=== PATIENT | female | born 1955 | race Caucasian/White ===

== ENCOUNTER 2016-11-17 00:03 | Emergency (ER) | payer BC, OTHER ==
[2016-11-17] MEDS ORDERED: Ondansetron ODT 4 MG TAB ONE (00:16)
[2016-11-17] MEDS ORDERED: Promethazine HCl 25 MG/ML VIAL ONE (01:01)
--- NOTE | 2016-11-17 01:06 | ERRECORD ---
[facility] EMERGENCY RECORD HPI NAUSEA/VOMITING/DIARRHEA (00:31 ABUS) CHIEF COMPLAINT: Patient presents for evaluation of nausea, Patient presents for evaluation of vomiting, Patient presents for evaluation of diarrhea. HISTORIAN: History provided by patient, 61 yr old F who comes in with reports of recent bronchitis and treatment with a z-ashley and steroids which she just finished and now has 2 days of N/V/D (nonbloody). Denies any F, rash. LOCATION FEMALE: Symptoms are generalized. SEVERITY: Currently symptoms are moderate, Current severity of pain rated as 9/10. TIME COURSE: Gradual onset of symptoms, 2, days priror to arrival, There has been no change in the patient's symptoms over time, are intermittent. ASSOCIATED WITH FEMALE: Associated with diarrhea, Associated with nausea, Associated with vomiting. EXACERBATED BY: Patient's condition exacerbated by food. RELIEVED BY: Patient's condition relieved by nothing. ROS (00:33 ABUS) CONSTITUTIONAL: Negative constitutional review of systems, Historian denies chills, denies fever. CARDIOVASCULAR: Negative cardiovascular review of systems, Historian denies chest pain, denies palpitations. RESPIRATORY: Negative respiratory review of systems, Historian denies cough, denies shortness of breath. GI: Historian reports abdominal pain, reports diarrhea, reports nausea, reports vomiting. GENITOURINARY FEMALE: Negative genitourinary review of systems, Historian denies dysuria, denies frequency. SKIN: Negative skin review of systems, Historian denies rash, denies skin changes. NEUROLOGIC: Negative neurologic review of systems, Historian denies headache. HEMO/LYMPHATIC: Normal hematologic/lymphatic system review, Historian denies abnormal blood clotting. PAST MEDICAL HISTORY (00:13 REBECCA) MEDICAL HISTORY: No past medical history. FEMALE SURGICAL HISTORY: Surgical history of hysterectomy. PSYCHIATRIC HISTORY: No previous psychiatric history, no previous inpatient psychiatric admissions. SOCIAL HISTORY: Patient denies drug use, Patient currently uses tobacco, smokes cigarettes, daily. KNOWN ALLERGIES No Known Drug Allergies CURRENT MEDICATIONS &a-1R&a+25V*p+0X*a2815O*c202B*c15G*c2P*p-0X&a-25V&a+1R Name: Felicia Goldberg : 1955 F61 MedRec: [id number] AcctNum: [id number] Prepared: WedNov 17, 2016 01:32 by Interface Page 1 of 3 pMD [facility] EMERGENCY RECORD No recorded medications VITAL SIGNS VITAL SIGNS: BP: 144/80, Pulse: 107, Resp: 16, Temp: 97.9 (Oral), Pain: 10, O2 sat: 95 on Room Air, Time: 11/17/2016 00:09. (00:09 MDEB) BP: 111/82, Pulse: 98, Resp: 16, O2 sat: 92 on RA, Time: 11/17/2016 01:23. (01:23 REBECCA) PHYSICAL EXAM (00:33 ABUS) CONSTITUTIONAL: Vital signs reviewed, Patient afebrile, Pulse normal, Blood pressure normal, Respiratory rate normal, Patient appears non toxic, Patient appears pain free, Patient alert and oriented to person, place and time. NECK: Neck exam normal, Neck exam included findings of normal range of motion, Trachea midline, no meningeal signs, no cervical adenopathy, no tenderness. RESPIRATORY CHEST: Respiratory and chest exam normal, Respiratory exam included findings of no respiratory distress, Breath sounds clear. CARDIOVASCULAR: Cardiovascular assessment normal, Cardiovascular exam included findings of heart rate regular rate and rhythm, Heart sounds normal. ABDOMEN FEMALE: Abdominal exam included findings of abdomen tender, to the epigastric region, mild intensity, Bowel sounds normal, no distension, no mass, no pulsatile masses, no peritoneal signs, no rigidity, no guarding, no rebound. BACK: Back exam normal, Back exam included findings of normal inspection, range of motion normal, no tenderness. NEURO: Neuro exam normal, Neuro exam findings include patient oriented to person, place and time, Speech normal, Gait normal. SKIN: Skin exam normal, Skin exam included findings of skin warm, dry, and normal in color, no rash. MEDICATION ADMINISTRATION SUMMARY Drug Name: promethazine injection, Dose Ordered: 25 mg, Route: Intramuscular, Status: Given, Time: 01:06 11/17/2016, Drug Name: Zofran ODT, Dose Ordered: 8 mg, Route: Oral, Status: Given, Time: 00:20 11/17/2016, Detailed record available in Medication Service section. DOCTOR NOTES (00:34 ABUS) TEXT: 61 yr old F who comes in with reports of recent bronchitis and treatment with a z-ashley and steroids which she just finished and now has 2 days of N/V/D (nonbloody). EXAM: Abdominal exam included findings of abdomen tender, to the epigastric region, mild intensity, Bowel sounds normal, no distension, no mass. DDX: Viral gastroenteritis &a-1R&a+25V*p+0X*n9101U*c202B*c15G*c2P*p-0X&a-25V&a+1R Name: Felicia Goldberg : 1955 F61 MedRec: [id number] AcctNum: [id number] Prepared: hcaya Nov 17, 2016 01:32 by Interface Page 2 of 3 pMD [facility] EMERGENCY RECORD Plan: Zofran and promethazine. Return precautions and counseling on advancement of fluids and food as outpatient. Discussed the rational and plan of care with pt and son who verbalized understanding and agreement. She also requested to go home and sleep in her own bed. PROBLEM LIST No recorded problems DIAGNOSIS (00:50 ABUS) FINAL: PRIMARY: Viral Gastroenteritis. PRESCRIPTION (00:36 ABUS) promethazine oral: TABLET : 25 mg : ORAL : Quantity: 1 Unit: tab(s) Route: ORAL Schedule: every 6 hours PRN Dispense: 8 Unit: tab(s) May substitute. Refills: No Refills . NOTES: No Refills. Zofran ODT: TABLET,DISINTEGRATING : 4 mg : ORAL : Quantity: 1 Unit: tab(s) Route: ORAL Schedule: every 6 hours PRN Dispense: 8 Unit: tab(s) May substitute. Refills: No Refills . NOTES: ^s=No Refills No Refills. DISPOSITION PATIENT: Disposition Type: Discharge, Disposition: *Discharge Home, Condition: Good. (00:50 ABUS) Patient left the department. (01:26 REBECCA) Arellano: [place]=MD Bambi, Josh FERNANDEZ=JON Jason, Elodia ODONNELL=JON Odell, Melodie &a-1R&a+25V*p+0X*u0215N*c202B*c15G*c2P*p-0X&a-25V&a+1R Name: Felicia Goldberg : 1955 F61 MedRec: [id number] AcctNum: [id number] Prepared: Margot Nov 17, 2016 01:32 by Interface Page 3 of 3 pMD MTDD
--- NOTE | 2016-11-17 01:17 | PICIS ---
[facility] EMERGENCY RECORD TRIAGE (WedNov 17, 2016 00:10 MDEB) TRIAGE NOTES: PATIENT C/O N/V FOR 3 DAYS AND DIARRHEA THAT STARTED TONIGHT. (WedNov 17, 2016 00:10 MDEB) PATIENT: NAME: Felicia Goldberg, AGE: 61, GENDER: female, : Wed1955, TIME OF GREET: WedNov 17, 2016 00:04, PREFERRED LANGUAGE: Kosovan, ETHNICITY: Not or , ECODE BILLING MAP: [facility], SSN: [id number], Zip Code: [address], KG WEIGHT: 63.50, , , PERSON ID: [id number], PCP: Mona HOPE. (WedNov 17, 2016 00:10 MDEB) PHONE: . (00:32) COMPLAINT: DIARRHEA, VOMITING. (WedNov 17, 2016 00:10 MDEB) ADMISSION: URGENCY: 3 Urgent, ADMISSION SOURCE: Home, TRANSPORT: Walk-in, BED: ED -05. (WedNov 17, 2016 00:10 MDEB) ASSESSMENT: Additional Triage notes: PATIENT SEEN BY PCP FOR BRONCHITIS. GIVEN ABX AND STEROIDS. NOW C/O N/V/D THAT HAS STARTED AFTER THE ABX. (00:13 REBECCA) PAIN: Patient complains of pain described as, Location GENERALIZED. (00:13 REBECCA) IMMUNIZATIONS: Flu vaccine not up to date, Tetanus not up to date, Pneumococcal vaccine not up to date. (00:13 REBECCA) SIRS SCORING: Heart Rate 55-109 (0), Temp range 96.8-101.1 (0), respiratory rate 12-24 (0), Latest WBC 3-14.9 (0), Mental Status altered: no (0), Infection or Suspected Infection: No. (00:13 REBECCA) TRIAGE SCREENING: Patient denies suicidal ideation, Patient denies presence of domestic violence. (00:13 REBECCA) LMP: LMP: Hysterectomy. (00:13 REBECCA) PROVIDERS: TRIAGE NURSE: Melodie Odell RN. (WedNov 17, 2016 00:10 MDEB) VITAL SIGNS: BP 144/80, Pulse 107, Resp 16, Temp 97.9, (Oral), Pain 10, O2 Sat 95, on Room Air, Time 11/17/2016 00:09. (00:09 MDEB) KNOWN ALLERGIES No Known Drug Allergies CURRENT MEDICATIONS No recorded medications VITAL SIGNS VITAL SIGNS: BP: 144/80, Pulse: 107, Resp: 16, Temp: 97.9 (Oral), Pain: 10, O2 sat: 95 on Room Air, Time: 11/17/2016 00:09. (00:09 MDEB) BP: 111/82, Pulse: 98, Resp: 16, O2 sat: 92 on RA, Time: 11/17/2016 01:23. (01:23 REBECCA) NURSING ASSESSMENT: ABDOMEN (00:20 REBECCA) CONSTITUTIONAL: Patient arrives ambulatory, Gait steady, History obtained from patient, Patient appears, generally ill, Patient cooperative, Patient alert, Oriented to person, place and time, Skin warm, Skin dry, Skin normal in color, Mucous membranes &a-1R&a+25V*p+0X*a7385S*c202B*c15G*c2P*p-0X&a-25V&a+1R Name: Felicia Goldberg : 1955 F61 MedRec: [id number] AcctNum: [id number] Prepared: WedNov 17, 2016 01:37 by Interface Page 1 of 6 pMD [facility] EMERGENCY RECORD pink, Mucous membranes moist, Patient is well-groomed, Patient c/o n/v/d after starting abx. PAIN: aching pain, cramping pain, diffusely. ABDOMEN: Abdomen assessment findings include abdomen symmetrical, Abdomen soft, tender, to the epigastric region, Bowel sound normal, Associated with nausea, Associated with vomiting, Associated with diarrhea, Associated with appetite change, decrease. SAFETY: Side rails up, Cart/Stretcher in lowest position, Family at bedside, Call light within reach, Hospital ID band on. NURSING PROCEDURE: DISCHARGE NOTE (01:23 REBECCA) DISCHARGE: Patient discharged to home, ambulating without assistance, family driving, accompanied by other family member, Discharge instructions given to patient, Simple or moderate discharge teaching performed, Prescriptions given and instructions on side effects given, Above person(s) verbalized understanding of discharge instructions and follow-up care, Patient instructed not to drive home, Notes: Patients son at the bedside to drive her home. BELONGINGS: Belongings and valuables with patient upon arrival to the Emergency Department include:, Belongings and valuables with patient at time of discharge include:, Belongings remain with patient, Valuables remain with patient. SAFETY: Side rails up, Cart/Stretcher in lowest position, Family at bedside, Call light within reach, Hospital ID band on. VITAL SIGNS: BP: 111, / 82, Pulse: 98, Resp: 16, O2 sat: 92, on: RA. MEDICATION ADMINISTRATION SUMMARY Drug Name: promethazine injection, Dose Ordered: 25 mg, Route: Intramuscular, Status: Given, Time: 01:06 11/17/2016, Drug Name: Zofran ODT, Dose Ordered: 8 mg, Route: Oral, Status: Given, Time: 00:20 11/17/2016, Detailed record available in Medication Service section. MEDICATION SERVICE promethazine injection: Order: promethazine injection (promethazine HCl) - Dose: 25 mg : Intramuscular Schedule: Now Ordered by: Josh Lacy MD Entered by: Josh Lacy MD WedNov 17, 2016 00:48 , Acknowledged by: Elodia Jason RN WedNov 17, 2016 00:49 Documented as given by: Elodia Jason RN WedNov 17, 2016 01:06 Patient, Medication, Dose, Route and Time verified prior to administration. IM medication, Medication administered to left deltoid, Correct patient, time, route, dose and medication confirmed prior to &a-1R&a+25V*p+0X*y2664E*c202B*c15G*c2P*p-0X&a-25V&a+1R Name: Felicia Goldberg : 1955 F61 MedRec: [id number] AcctNum: [id number] Prepared: WedNov 17, 2016 01:37 by Interface Page 2 of 6 pMD [facility] EMERGENCY RECORD administration, Patient advised of actions and side-effects prior to administration, Allergies confirmed and medications reviewed prior to administration, Patient in position of comfort, Side rails up, Cart in lowest position, Family at bedside. Zofran ODT: Order: Zofran ODT (ondansetron) - Dose: 8 mg : Oral Schedule: Now Ordered by: Josh Lacy MD Entered by: MD Margot Harris Nov 17, 2016 00:16 , Acknowledged by: JON Canales Nov 17, 2016 00:19 Documented as given by: JON Canales Nov 17, 2016 00:20 Patient, Medication, Dose, Route and Time verified prior to administration. Site: Medication administered P.O., Correct patient, time, route, dose and medication confirmed prior to administration, Patient advised of actions and side-effects prior to administration, Allergies confirmed and medications reviewed prior to administration, Patient in position of comfort, Side rails up, Cart in lowest position, Family at bedside. HPI NAUSEA/VOMITING/DIARRHEA (00:31 ABUS) CHIEF COMPLAINT: Patient presents for evaluation of nausea, Patient presents for evaluation of vomiting, Patient presents for evaluation of diarrhea. HISTORIAN: History provided by patient, 61 yr old F who comes in with reports of recent bronchitis and treatment with a z-ashley and steroids which she just finished and now has 2 days of N/V/D (nonbloody). Denies any F, rash. LOCATION FEMALE: Symptoms are generalized. SEVERITY: Currently symptoms are moderate, Current severity of pain rated as 9/10. TIME COURSE: Gradual onset of symptoms, 2, days priror to arrival, There has been no change in the patient's symptoms over time, are intermittent. ASSOCIATED WITH FEMALE: Associated with diarrhea, Associated with nausea, Associated with vomiting. EXACERBATED BY: Patient's condition exacerbated by food. RELIEVED BY: Patient's condition relieved by nothing. ROS (00:33 ABUS) CONSTITUTIONAL: Negative constitutional review of systems, Historian denies chills, denies fever. CARDIOVASCULAR: Negative cardiovascular review of systems, Historian denies chest pain, denies palpitations. RESPIRATORY: Negative respiratory review of systems, Historian denies cough, denies shortness of breath. GI: Historian reports abdominal pain, reports diarrhea, reports nausea, reports vomiting. GENITOURINARY FEMALE: Negative genitourinary review of systems, Historian denies dysuria, denies frequency. &a-1R&a+25V*p+0X*g2945K*c202B*c15G*c2P*p-0X&a-25V&a+1R Name: Felicia Goldberg : 1955 F61 MedRec: [id number] AcctNum: [id number] Prepared: WedNov 17, 2016 01:37 by Interface Page 3 of 6 pMD [facility] EMERGENCY RECORD SKIN: Negative skin review of systems, Historian denies rash, denies skin changes. NEUROLOGIC: Negative neurologic review of systems, Historian denies headache. HEMO/LYMPHATIC: Normal hematologic/lymphatic system review, Historian denies abnormal blood clotting. PAST MEDICAL HISTORY (00:13 REBECCA) MEDICAL HISTORY: No past medical history. FEMALE SURGICAL HISTORY: Surgical history of hysterectomy. PSYCHIATRIC HISTORY: No previous psychiatric history, no previous inpatient psychiatric admissions. SOCIAL HISTORY: Patient denies drug use, Patient currently uses tobacco, smokes cigarettes, daily. PHYSICAL EXAM (00:33 ABUS) CONSTITUTIONAL: Vital signs reviewed, Patient afebrile, Pulse normal, Blood pressure normal, Respiratory rate normal, Patient appears non toxic, Patient appears pain free, Patient alert and oriented to person, place and time. NECK: Neck exam normal, Neck exam included findings of normal range of motion, Trachea midline, no meningeal signs, no cervical adenopathy, no tenderness. RESPIRATORY CHEST: Respiratory and chest exam normal, Respiratory exam included findings of no respiratory distress, Breath sounds clear. CARDIOVASCULAR: Cardiovascular assessment normal, Cardiovascular exam included findings of heart rate regular rate and rhythm, Heart sounds normal. ABDOMEN FEMALE: Abdominal exam included findings of abdomen tender, to the epigastric region, mild intensity, Bowel sounds normal, no distension, no mass, no pulsatile masses, no peritoneal signs, no rigidity, no guarding, no rebound. BACK: Back exam normal, Back exam included findings of normal inspection, range of motion normal, no tenderness. NEURO: Neuro exam normal, Neuro exam findings include patient oriented to person, place and time, Speech normal, Gait normal. SKIN: Skin exam normal, Skin exam included findings of skin warm, dry, and normal in color, no rash. EVENTS TRANSFER: Triage to Emergency Main ED -05. (WedNov 17, 2016 00:10 MDEB) Removed from Emergency Main ED -05. (01:26 REBECCA) DOCTOR NOTES (00:34 ABUS) TEXT: 61 yr old F who comes in with reports of recent bronchitis and treatment with a z-ashley and steroids which she just &a-1R&a+25V*p+0X*w0594U*c202B*c15G*c2P*p-0X&a-25V&a+1R Name: Felicia Goldberg : 1955 F61 MedRec: [id number] AcctNum: [id number] Prepared: WedNov 17, 2016 01:37 by Interface Page 4 of 6 pMD [facility] EMERGENCY RECORD finished and now has 2 days of N/V/D (nonbloody). EXAM: Abdominal exam included findings of abdomen tender, to the epigastric region, mild intensity, Bowel sounds normal, no distension, no mass. DDX: Viral gastroenteritis Plan: Zofran and promethazine. Return precautions and counseling on advancement of fluids and food as outpatient. Discussed the rational and plan of care with pt and son who verbalized understanding and agreement. She also requested to go home and sleep in her own bed. PROBLEM LIST No recorded problems DIAGNOSIS (00:50 ABUS) FINAL: PRIMARY: Viral Gastroenteritis. DISPOSITION PATIENT: Disposition Type: Discharge, Disposition: *Discharge Home, Condition: Good. (00:50 ABUS) Patient left the department. (01:26 REBECCA) INSTRUCTION (00:51 ABUS) DISCHARGE: GASTROENTERITIS, VIRAL (5Y-ADULT). FOLLOWUP: JAYY, Mona, [facility], [address] [place] [address] , [phone], Follow up with Primary Care Physician in 1-2 days. SPECIAL: As discussed in the ED, please keep any upcoming appointments with your primary doctor or call the referral provided to you today to establish a follow up evaluation or ongoing medical care. Please come back if you start to have fever, vomiting or any symptoms that concern you. PRESCRIPTION (00:36 ABUS) promethazine oral: TABLET : 25 mg : ORAL : Quantity: 1 Unit: tab(s) Route: ORAL Schedule: every 6 hours PRN Dispense: 8 Unit: tab(s) May substitute. Refills: No Refills . NOTES: No Refills. Zofran ODT: TABLET,DISINTEGRATING : 4 mg : ORAL : Quantity: 1 Unit: tab(s) Route: ORAL Schedule: every 6 hours PRN Dispense: 8 Unit: tab(s) May substitute. Refills: No Refills . NOTES: ^s=No Refills No Refills. IMAGING (01:25 REBECCA) *DISCHARGE INSTRUCTIONS RECEIPT: Image captured from scanner. Page 2 added. Image captured from scanner. *SUPPLY CHARGE SHEET: Image captured from scanner. &a-1R&a+25V*p+0X*n9816D*c202B*c15G*c2P*p-0X&a-25V&a+1R Name: Felicia Goldberg : 1955 F61 MedRec: [id number] AcctNum: [id number] Prepared: WedNov 17, 2016 01:37 by Interface Page 5 of 6 pMD [facility] EMERGENCY RECORD ADMIN (00:53 ABUS) DIGITAL SIGNATURE: MD Lacy Anthony. Arellano: AB=MD Lacy Anthony REBECCA=JON Jason, Elodia GARCIAEB=JON Odell, Melodie &a-1R&a+25V*p+0X*b2323X*c202B*c15G*c2P*p-0X&a-25V&a+1R Name: Felicia Goldberg : 1955 F61 MedRec: [id number] AcctNum: [id number] Prepared: WedNov 17, 2016 01:37 by Interface Page 6 of 6 pMD MTDD
== END 2016-11-17 01:24 | disposition home or self-care (01) ==
LOC: MADERS 00:03
DX: A08.4 Viral intestinal infection, unspecified (principal); F17.210 Nicotine dependence, cigarettes, uncomplicated
CPT/HCPCS: 96372; J2550; Q0162